=== PATIENT | male | born 1960 | race Caucasian/White ===

== ENCOUNTER 2019-10-29 07:50 | Outpatient (CLI) | payer OTHER, SELFPAY ==
--- NOTE | 2019-10-29 08:13 | MR_ITS ---
WS: [id number] MRI LUMBAR SPINE NONCONTRAST HISTORY: LEFT SCIATIC PAIN COMPARISON: None available. TECHNIQUE: Sagittal and axial multisequence imaging is submitted. Disc bulging and osteophytes contacting the ventral cervical cord at C3-4. Mild anterior wedging of T 4 and T8. Very minimal LEFT curvature of the lumbar spine. Slight straightening of the normal lordosis. Disc spaces and vertebral body heights are well-preserved. Conus terminates normally at L1-2 disc level. L1-L2: Mild annular disc bulging and facet arthropathy. Mild bilateral foraminal narrowing. L2-L3: Mild annular disc bulging and facet arthropathy. There is moderate narrowing and encroachment upon the subarticular recesses and foramen. L3-L4: Diffuse annular disc bulging and osteophytosis with facet arthropathy. Mild narrowing of the s ubarticular recesses and central canal. Moderate bilateral foraminal stenosis. L4-L5: Moderate annular disc bulging asymmetric to the LEFT with osteophytic ridging. Mild central an d subarticular recess stenosis. Moderate bilateral foraminal stenosis, LEFT greater than RIGHT. Disc osteophyte contact on the LEFT L4 and L5 nerve roots. L5-S1: Mild annular disc bulging. LEFT paracentral and subarticular recess soft tissue consistent wit h a disc protrusion causing significant posterior displacement and encroachment upon the LEFT S1 nerv e root. Disc protrusion measures 7 mm transversely. There is additional mild RIGHT and moderate LEFT foraminal stenosis. Visualized retroperitoneum is normal. MR/MR lumbar spine wo con* [id number] IMPRESSION: 1. LEFT subarticular paracentral disc protrusion contacting the S1 nerve root with displacement. 2. Multilevel bilateral foraminal stenoses and central stenoses as above. Mode rate bilateral foraminal stenoses from L2-3 to L4-5 and on the LEFT at L5-S1. 3. Moderate LEFT foraminal stenosis at L4-5 with disc osteophyte contact on th e L4 and L5 nerve roots.
== END 2019-10-29 07:51 | disposition home or self-care (01) ==
PROVIDERS: Visit Provider Emergency Medicine Emergency Medical Services
DX: M54.32 Sciatica, left side (principal); M53.3 Sacrococcygeal disorders, not elsewhere classified; M48.07 Spinal stenosis, lumbosacral region; M48.061 Spinal stenosis, lumbar region without neurogenic claudication
CPT/HCPCS: 72148

== ENCOUNTER 2020-01-20 13:33 | Outpatient (CLI) | payer OTHER, SELFPAY ==
--- NOTE | 2020-01-20 13:39 | XR_ITS ---
WS: [id number] LATERAL LUMBAR SPINE: 3 view. Lateral radiographs are performed in upright neutral, flexion and extension to the patient's toleranc e. HISTORY: Low back pain COMPARISON: 10/29/2019 Normal posterior lumbar alignment. Mild disc space narrowing at L4-5 and L5-S1. No fracture. Mild fac et joint arthritis L4-5 and L5-S1. With flexion and extension no instability. XR/XR lumbar spine f/e only [id number] IMPRESSION: No lumbar spine instability.
== END 2020-01-20 13:34 | disposition home or self-care (01) ==
LOC: RADWPI 13:36
PROVIDERS: PCP Emergency Medicine Emergency Medical Services; Visit Provider Licensed Practical Nurse
DX: M54.5 Low back pain (principal)
CPT/HCPCS: 72120

== ENCOUNTER → 2023-02-18 16:03 | Outpatient (BNVA) | payer OTHER, SELFPAY | PROVIDERS: PCP Emergency Medicine Emergency Medical Services; Referring Provider Emergency Medicine Emergency Medical Services; Visit Provider Dermatology | DX: L82.0 Inflamed seborrheic keratosis (principal); C44.319 Basal cell carcinoma of skin of other parts of face; R22.32 Localized swelling, mass and lump, left upper limb; L82.1 Other seborrheic keratosis; L81.4 Other melanin hyperpigmentation | CPT/HCPCS: 11102; 11103; 99203 ==

== ENCOUNTER → 2023-03-21 07:44 | Outpatient (BNVA) | payer OTHER, SELFPAY | PROVIDERS: PCP Emergency Medicine Emergency Medical Services; Visit Provider Dermatology | DX: C44.319 Basal cell carcinoma of skin of other parts of face (principal) | CPT/HCPCS: 12052; 17311 ==

== ENCOUNTER → 2023-04-01 11:29 | Outpatient (BNVA) | payer OTHER, SELFPAY | PROVIDERS: PCP Emergency Medicine Emergency Medical Services; Visit Provider Dermatology | DX: L72.0 Epidermal cyst (principal); L82.1 Other seborrheic keratosis; Z48.02 Encounter for removal of sutures | CPT/HCPCS: 10060; 99024; 99212 ==

== ENCOUNTER → 2023-10-07 13:23 | Outpatient (BNVA) | payer OTHER, SELFPAY | PROVIDERS: PCP Emergency Medicine Emergency Medical Services; Visit Provider Dermatology | DX: L57.0 Actinic keratosis (principal); L72.0 Epidermal cyst; D18.01 Hemangioma of skin and subcutaneous tissue; L81.4 Other melanin hyperpigmentation; L73.8 Other specified follicular disorders; Z85.828 Personal history of other malignant neoplasm of skin | CPT/HCPCS: 17000; 99213 ==

== ENCOUNTER → 2024-10-07 09:40 | Outpatient (BNVA) | payer OTHER, SELFPAY | PROVIDERS: PCP Emergency Medicine Emergency Medical Services; Visit Provider Nurse Practitioner Family | DX: L72.0 Epidermal cyst (principal); L82.1 Other seborrheic keratosis; L73.8 Other specified follicular disorders; Z08 Encounter for follow-up examination after completed treatment for malignant neoplasm; Z85.828 Personal history of other malignant neoplasm of skin; D48.5 Neoplasm of uncertain behavior of skin; L57.0 Actinic keratosis | CPT/HCPCS: 11102; 17000; 99213 ==

== ENCOUNTER → 2024-11-09 12:23 | Outpatient (BNVA) | payer OTHER, SELFPAY | PROVIDERS: PCP Emergency Medicine Emergency Medical Services; Visit Provider Dermatology | DX: D48.5 Neoplasm of uncertain behavior of skin (principal); R20.8 Other disturbances of skin sensation; R23.8 Other skin changes; L53.8 Other specified erythematous conditions; D03.59 Melanoma in situ of other part of trunk; C44.41 Basal cell carcinoma of skin of scalp and neck | CPT/HCPCS: 11424; 11603; 13101; 13132; 17271 ==

== ENCOUNTER → 2025-02-08 15:09 | Outpatient (BNVA) | payer OTHER, SELFPAY | PROVIDERS: PCP Emergency Medicine Emergency Medical Services; Visit Provider Nurse Practitioner Family | DX: L72.0 Epidermal cyst (principal); L81.4 Other melanin hyperpigmentation; L73.8 Other specified follicular disorders; Z86.006 Personal history of melanoma in-situ; Z08 Encounter for follow-up examination after completed treatment for malignant neoplasm; Z85.828 Personal history of other malignant neoplasm of skin; L57.0 Actinic keratosis | CPT/HCPCS: 17000; 99213 ==

== ENCOUNTER 2025-05-20 07:30 | Outpatient (CLI) | payer OTHER, SELFPAY | END 2025-05-20 07:31 | disposition home or self-care (01) | LOC: RAD 05-23 06:59 | PROVIDERS: PCP Emergency Medicine Emergency Medical Services; Visit Provider Nurse Practitioner Family | DX: L73.8 Other specified follicular disorders (principal); L81.4 Other melanin hyperpigmentation; Z86.006 Personal history of melanoma in-situ; Z08 Encounter for follow-up examination after completed treatment for malignant neoplasm; Z85.828 Personal history of other malignant neoplasm of skin | CPT/HCPCS: 99213 ==

== ENCOUNTER 2025-08-12 11:49 | Outpatient (CLI) | payer OTHER, SELFPAY ==
--- NOTE | 2025-08-12 11:55 | CT_ITS ---
WS: [id number] LDCT LUNG CANCER SCREENING HISTORY: SCREENING/HX OF TOBACCO USE TECHNIQUE: Axial imaging performed from the apices to 1 cm below the costophrenic angles. Coronal and sagittal reformats are submitted with axial MIP series. All CT scans at [facility] use at least one of these dose optimization techniques: automated exposure control; mA and/or kV adjustment per patient size (includes targeted exams where dose is matched to clinical indication); or iterative reconstruction. DLP: 57.81 mGy.cm DIvol: Mean CTDIvol: 1.00 (mGy) COMPARISON: None available. Diagnostic quality: Satisfactory Lungs: Pulmonary hyperexpansion. Biapical pleural scarring and fibrosis. There are numerous peripheral 2 to 3 mm nodules within both lungs. Slightly greater distribution on the LEFT. Benign calcified granuloma RIGHT lung base. No endobronchial lesions. Heart: Normal size heart with no pericardial effusion.. Other findings: Small mediastinal and hilar lymph nodes. No enlarged lymph nodes. Mild atherosclerosis aorta. Moderate size hiatal hernia. Bilateral adrenal adenomas. LEFT adrenal adenoma is the largest measuring 2.2 cm. Mild anterior wedging of T8. Mild anterior wedging of T4. CT/CT lung screening [id number] IMPRESSION: LUNG-RADS: 2S-Benign Appearance or Behavior with Significant Findings FOLLOW UP: 12 Month: Continue annual screening with LDCT OTHER FINDINGS (S MODIFIER): Bilateral adrenal adenomas. Moderate size hiatal h ernia.
== END 2025-08-12 11:50 | disposition home or self-care (01) ==
LOC: RAD 11:50
PROVIDERS: PCP Emergency Medicine Emergency Medical Services; Visit Provider Nurse Practitioner Family
DX: Z12.2 Encounter for screening for malignant neoplasm of respiratory organs (principal); Z87.891 Personal history of nicotine dependence; J98.4 Other disorders of lung; J84.10 Pulmonary fibrosis, unspecified; R59.0 Localized enlarged lymph nodes; I70.0 Atherosclerosis of aorta; E27.9 Disorder of adrenal gland, unspecified; M48.54XA Collapsed vertebra, not elsewhere classified, thoracic region, initial encounter for fracture; X58.XXXA Exposure to other specified factors, initial encounter; K44.9 Diaphragmatic hernia without obstruction or gangrene; D35.02 Benign neoplasm of left adrenal gland; F42.4 Excoriation (skin-picking) disorder; D36.12 Benign neoplasm of peripheral nerves and autonomic nervous system, upper limb, including shoulder; L73.8 Other specified follicular disorders; L81.4 Other melanin hyperpigmentation; Z86.006 Personal history of melanoma in-situ; Z08 Encounter for follow-up examination after completed treatment for malignant neoplasm; Z85.828 Personal history of other malignant neoplasm of skin; L57.0 Actinic keratosis
CPT/HCPCS: 17000; 71271; 99213